=== PATIENT | male | born 1985 | race African-American/Black ===

== ENCOUNTER 2018-08-07 10:52 | Inpatient (IN) | payer BC, OTHER ==
[~2018-08-07] VITALS: Ht 172.7 cm; Wt 66.8 kg
[~2018-08-07 10:52] MED LIST: KETO5DRO2 OP; PRED1DRO OP; [UNRECOGNIZED DRUG - CODE] OP
[2018-08-07] MEDS ORDERED: ONDANSETRON HCL 4 MG/2 ML VIAL IVP ONE ×3 (13:00→16:45)
[2018-08-07] MEDS ORDERED: SODIUM CHLORIDE 0.9% 2,000 ML IV ONE (13:00)
[2018-08-07] MEDS ORDERED: KETOROLAC TROMETHAMINE 30 MG/ML VIAL IVP ONE (13:00)
[2018-08-07 13:13] LABS: BASOPHILS % (AUTO) 0.4 % (0.0-2.0); EOSINOPHILS % (AUTO) 0.1 % (1.0-6.0); HEMATOCRIT 44.6 % (41-53); HEMOGLOBIN 14.6 g/dL (13.5-17.5); LYMPHOCYTES % (AUTO) 5.1 % (22.0-44.0); MEAN CORPUSCULAR HEMOGLOBIN 30.4 pg (26.0-34.0); MEAN CORPUSCULAR HGB CONC 32.7 G/dL (31.0-37.0); MEAN CORPUSCULAR VOLUME 93 fL (80-100); MONOCYTES # (AUTO) 1.1 K/uL (0.1-1.0); MONOCYTES % (AUTO) 6.1 % (2.0-9.0); NEUTROPHILS # (AUTO) 16.7 K/uL (1.8-7.7); PLATELET COUNT (AUTO) 340 K/uL (150-450); RED BLOOD CELL COUNT(AUTO) 4.81 MIL/uL (4.50-5.90); RED CELL DISTRIBUTION WIDTH 13.4 % (11.5-14.5)
[2018-08-07 13:15] LABS: NEUTROPHILS % (AUTO) 88.3 % (40.0-70.0)
[2018-08-07 13:21] LABS: ANION GAP 28 mmol/L (8-16); CARBON DIOXIDE 14 mmol/L (22-29); CHLORIDE 96 mmol/L (98-107); CREATININE 1.27 mg/dL (0.60-1.30); GLOMERULAR FILTR. RATE CALC > 60 mL/min (>60); GLUCOSE,RANDOM 94 mg/dL (70-110); POTASSIUM 4.9 mmol/L (3.5-5.1); SODIUM SERUM 138 mmol/L (136-145); UREA NITROGEN, BLOOD 20 mg/dL (7-18)
[2018-08-07 13:30] LABS: ALANINE AMINOTRANSFERASE 80 U/L (12-78); ALBUMIN 4.9 g/dL (3.4-5.0); ALKALINE PHOSPHATASE 71 U/L (46-116); ASPARTATE AMINOTRANSFERASE 161 U/L (15-37); BILIRUBIN,TOTAL 0.8 mg/dL (0.1-1.0); LIPASE 46 U/L (73-393); TOTAL PROTEIN, SERUM 9.4 g/dL (6.4-8.2)
[2018-08-07 13:34] LABS: CALCIUM, TOTAL 9.8 mg/dL (8.8-10.5)
[2018-08-07 14:30] LABS: APPEARANCE,URINE CLEAR (CLEAR); BILIRUBIN,URINE NEGATIVE (NEGATIVE); GLUCOSE, URINE (UA) NEGATIVE (NEGATIVE); KETONES,URINE >=80 mg/dL (NEGATIVE); LEUKOCYTE ESTERASE ,URINE NEGATIVE (NEGATIVE); NITRATE,URINE NEGATIVE (NEGATIVE); OCCULT BLOOD,URINE SMALL (NEGATIVE); PROTEIN,URINE POS 1+ (NEGATIVE); UROBILINOGEN,URINE 0.2 mg/dL (<=1.0)
[2018-08-07 14:34] LABS: AMPHET/METH SCREEN,URINE NEGATIVE (NEGATIVE); BACTERIA,URINE Rare /HPF (None Seen); BARBITURATE SCREEN, URINE NEGATIVE (NEGATIVE); BENZODIAZEPINES SCREEN,URINE NEGATIVE (NEGATIVE); CANNABINOID SCREEN,URINE POSITIVE (NEGATIVE); COCAINE SCREEN,URINE NEGATIVE (NEGATIVE); METHADONE SCREEN, URINE NEGATIVE (NEGATIVE); OPIATE SCREEN,URINE NEGATIVE (NEGATIVE); PHENCYCLIDINE SCREEN,URINE NEGATIVE (NEGATIVE); RBC,URINE 0-2 /HPF (0-2); SQUAMOUS EPITHELIAL CELL,UR Rare /LPF (None Seen); WBC,URINE None Seen /HPF (0-5)
[2018-08-07] MEDS ORDERED: ACETAMINOPHEN 1000 MG/ISO-OSM 100 ML IV ONE (14:45)
[2018-08-07] MEDS ORDERED: PB/HYOSCY/ATR/SCOP/LIDO/MAALOX 55 ML BOTTLE PO ONE (14:45)
[2018-08-07] MEDS ORDERED: PANTOPRAZOLE SODIUM 40 MG/VIAL IVP ONE (14:45)
[2018-08-07 15:44] LABS: LACTIC ACID 3.5 mmol/L (0.4-2.0)
[2018-08-07 15:47] LABS: INFLUENZA TYPE A NEGATIVE FOR TYPE A (NEGATIVE); INFLUENZA TYPE B POSITIVE FOR TYPE B (NEGATIVE)
[2018-08-07] MEDS: LORazepam 2 MG/ML VIAL IVP ONE ×2 (16:00→16:21)
[2018-08-07] MEDS ORDERED: SODIUM CHLORIDE 0.9% 1,000 ML IV ONE (16:45)
[2018-08-07] MEDS ORDERED: MORPHINE SULFATE 4 MG/ML SYRINGE IVP ONE ×2 (16:45→17:45)
[2018-08-07] MEDS ORDERED: CefTRIAXone 1 GM/DEXTROSE 50 ML IV ONE (16:45)
[2018-08-07] MEDS ORDERED: VANCOMYCIN HCL 1 GM/D5% WATER 200 ML IV ONE (16:45)
[2018-08-07] MEDS ORDERED: OSELTAMIVIR PHOSPHATE 75 MG CAPSULE PO ONE (16:45)
[2018-08-07] MEDS ORDERED: ACETAMINOPHEN 325 MG TABLET PO PRN (18:15)
[2018-08-07] MEDS ORDERED: ONDANSETRON HCL 4 MG/2 ML VIAL IVP PRN (18:15)
[2018-08-07] MEDS ORDERED: 0.9% SODIUM CHLORIDE 10 ML SYRINGE IVP PRN ×2 (18:15→22:30)
[2018-08-07 18:31] LABS: BASOPHILS % (AUTO) 0.2 % (0.0-2.0); EOSINOPHILS % (AUTO) 0 % (1.0-6.0); HEMATOCRIT 37.8 % (41-53); HEMOGLOBIN 12.6 g/dL (13.5-17.5); LYMPHOCYTES # (AUTO) 0.9 K/uL (1.0-4.8); LYMPHOCYTES % (AUTO) 6.4 % (22.0-44.0); MEAN CORPUSCULAR HEMOGLOBIN 30.8 pg (26.0-34.0); MEAN CORPUSCULAR HGB CONC 33.4 G/dL (31.0-37.0); MEAN CORPUSCULAR VOLUME 92 fL (80-100); MONOCYTES # (AUTO) 1.1 K/uL (0.1-1.0); MONOCYTES % (AUTO) 8.1 % (2.0-9.0); PLATELET COUNT (AUTO) 209 K/uL (150-450); RED CELL DISTRIBUTION WIDTH 13.1 % (11.5-14.5)
[2018-08-07 18:32] LABS: NEUTROPHILS % (AUTO) 85.3 % (40.0-70.0)
[2018-08-07 18:39] LABS: ANION GAP 15 mmol/L (8-16); CALCIUM, TOTAL 7.8 mg/dL (8.8-10.5); CARBON DIOXIDE 19 mmol/L (22-29); CHLORIDE 99 mmol/L (98-107); CREATININE 1.03 mg/dL (0.60-1.30); GLOMERULAR FILTR. RATE CALC > 60 mL/min (>60); GLUCOSE,RANDOM 110 mg/dL (70-110); POTASSIUM 4.6 mmol/L (3.5-5.1); SODIUM SERUM 133 mmol/L (136-145); UREA NITROGEN, BLOOD 15 mg/dL (7-18)
[2018-08-07 19:40] VITALS: BP 139/84
[2018-08-07] MEDS ORDERED: ZOLPIDEM TARTRATE 5 MG TABLET PO PRN (22:30)
[2018-08-08 00:05] VITALS: BP 135/79
[2018-08-08 04:20] VITALS: BP 119/75
[2018-08-08] MEDS: ACETAMINOPHEN 325 MG TABLET PO PRN ×3 (04:35→13:26)
[2018-08-08 06:03] LABS: BASOPHILS % (AUTO) 0.4 % (0.0-2.0); EOSINOPHILS % (AUTO) 0 % (1.0-6.0); HEMATOCRIT 34.3 % (41-53); HEMOGLOBIN 11.7 g/dL (13.5-17.5); LYMPHOCYTES # (AUTO) 1.1 K/uL (1.0-4.8); LYMPHOCYTES % (AUTO) 10.5 % (22.0-44.0); MEAN CORPUSCULAR HEMOGLOBIN 30.7 pg (26.0-34.0); MEAN CORPUSCULAR VOLUME 90 fL (80-100); MONOCYTES # (AUTO) 0.8 K/uL (0.1-1.0); MONOCYTES % (AUTO) 7.8 % (2.0-9.0); NEUTROPHILS # (AUTO) 8.3 K/uL (1.8-7.7); NEUTROPHILS % (AUTO) 81.3 % (40.0-70.0); PLATELET COUNT (AUTO) 225 K/uL (150-450); RED CELL DISTRIBUTION WIDTH 12.8 % (11.5-14.5)
[2018-08-08 06:27] LABS: ANION GAP 10 mmol/L (8-16); CALCIUM, TOTAL 8.1 mg/dL (8.8-10.5); CARBON DIOXIDE 24 mmol/L (22-29); CHLORIDE 103 mmol/L (98-107); CREATININE 1.01 mg/dL (0.60-1.30); GLOMERULAR FILTR. RATE CALC > 60 mL/min (>60); GLUCOSE,RANDOM 90 mg/dL (70-110); POTASSIUM 3.6 mmol/L (3.5-5.1); SODIUM SERUM 137 mmol/L (136-145); UREA NITROGEN, BLOOD 13 mg/dL (7-18)
[2018-08-08 07:36] VITALS: BP 119/74
[2018-08-08] MEDS: HEPARIN SODIUM,PORCINE 5,000 UNITS/ML VIAL SQ SCH ×3 (08:36→17:31)
[2018-08-08] MEDS ORDERED: PANTOPRAZOLE SODIUM 40 MG/VIAL IVP SCH (09:00)
[2018-08-08] MEDS: MORPHINE SULFATE 2 MG/ML SYRINGE IVP PRN ×3 (09:24→17:37)
[2018-08-08] MEDS: ONDANSETRON HCL 4 MG/2 ML VIAL IVP PRN ×2 (09:39→17:37)
[2018-08-08] MEDS ORDERED: PB/HYOSCY/ATR/SCOP/LIDO/MAALOX 55 ML BOTTLE PO ONE (11:00)
[2018-08-08 11:56] VITALS: BP 131/87
[2018-08-08] MEDS ORDERED: SODIUM CHLORIDE 0.9% 100 ML ONE (15:00)
[2018-08-08] MEDS ORDERED: IOVERSOL 320 MG/ML 100 ML VIAL ONE (15:00)
[2018-08-08 16:02] VITALS: BP 134/86
[2018-08-08 17:01] LABS: ALANINE AMINOTRANSFERASE 43 U/L (12-78); ALBUMIN 3.2 g/dL (3.4-5.0); ALKALINE PHOSPHATASE 47 U/L (46-116); ASPARTATE AMINOTRANSFERASE 68 U/L (15-37); BILIRUBIN,TOTAL 0.7 mg/dL (0.1-1.0); TOTAL PROTEIN, SERUM 6.7 g/dL (6.4-8.2)
[2018-08-08] MEDS: PANTOPRAZOLE SODIUM 80 MG in SODIUM CHLORIDE 0.9% 100 ML IV SCH (17:31)
[2018-08-08] MEDS: OSELTAMIVIR PHOSPHATE 75 MG CAPSULE PO SCH (17:31)
[2018-08-08] MEDS ORDERED: SODIUM CHLORIDE 0.9% 500 ML IV ONE (17:36)
[2018-08-08] MEDS: CefTRIAXone SODIUM 2 GM in DEXTROSE 5%-WATER 50 ML IV SCH (17:37)
[2018-08-08] MEDS: MetroNIDAZOLE 500 MG/NACL 100 ML IV SCH (18:59)
[2018-08-08 19:47] VITALS: BP 148/94
[2018-08-08 20:13] LABS: INR 0.9 (0.9-1.1); PROTHROMBIN TIME 9.6 SEC (9.4-11.6)
[2018-08-08 20:26] LABS: BASOPHILS % (AUTO) 0.7 % (0.0-2.0); EOSINOPHILS % (AUTO) 0 % (1.0-6.0); HEMATOCRIT 35.9 % (41-53); LYMPHOCYTES # (AUTO) 1.6 K/uL (1.0-4.8); LYMPHOCYTES % (AUTO) 20.8 % (22.0-44.0); MEAN CORPUSCULAR HEMOGLOBIN 30.8 pg (26.0-34.0); MEAN CORPUSCULAR HGB CONC 33.5 G/dL (31.0-37.0); MEAN CORPUSCULAR VOLUME 92 fL (80-100); MONOCYTES # (AUTO) 0.6 K/uL (0.1-1.0); MONOCYTES % (AUTO) 7.8 % (2.0-9.0); NEUTROPHILS # (AUTO) 5.3 K/uL (1.8-7.7); NEUTROPHILS % (AUTO) 70.7 % (40.0-70.0); PLATELET COUNT (AUTO) 220 K/uL (150-450); RED CELL DISTRIBUTION WIDTH 12.7 % (11.5-14.5)
[2018-08-09] MEDS: OSELTAMIVIR PHOSPHATE 75 MG CAPSULE PO SCH ×3 (00:25→20:06)
[2018-08-09 00:27] VITALS: BP 137/96
[2018-08-09] MEDS: MORPHINE SULFATE 2 MG/ML SYRINGE IVP PRN ×4 (00:29→20:39)
[2018-08-09] MEDS: MetroNIDAZOLE 500 MG/NACL 100 ML IV SCH ×2 (02:06→10:16)
[2018-08-09] MEDS: PANTOPRAZOLE SODIUM 80 MG in SODIUM CHLORIDE 0.9% 100 ML IV SCH (02:06)
[2018-08-09 04:25] VITALS: BP 141/84
[2018-08-09] MEDS: CefTRIAXone SODIUM 2 GM in DEXTROSE 5%-WATER 50 ML IV SCH ×2 (05:44→16:04)
[2018-08-09 07:22] LABS: BASOPHILS % (AUTO) 1.4 % (0.0-2.0); EOSINOPHILS % (AUTO) 0.2 % (1.0-6.0); HEMATOCRIT 36.2 % (41-53); HEMOGLOBIN 12.2 g/dL (13.5-17.5); LYMPHOCYTES # (AUTO) 1.3 K/uL (1.0-4.8); LYMPHOCYTES % (AUTO) 24.5 % (22.0-44.0); MEAN CORPUSCULAR HEMOGLOBIN 30.8 pg (26.0-34.0); MEAN CORPUSCULAR HGB CONC 33.6 G/dL (31.0-37.0); MEAN CORPUSCULAR VOLUME 92 fL (80-100); MONOCYTES # (AUTO) 0.6 K/uL (0.1-1.0); MONOCYTES % (AUTO) 10.8 % (2.0-9.0); NEUTROPHILS # (AUTO) 3.3 K/uL (1.8-7.7); NEUTROPHILS % (AUTO) 63.1 % (40.0-70.0); PLATELET COUNT (AUTO) 214 K/uL (150-450); RED BLOOD CELL COUNT(AUTO) 3.95 MIL/uL (4.50-5.90); RED CELL DISTRIBUTION WIDTH 12.5 % (11.5-14.5)
[2018-08-09] MEDS ORDERED: SODIUM CHLORIDE 0.9% 1,000 ML IV ONE ×2 (07:24→07:30)
[2018-08-09 07:44] LABS: ALANINE AMINOTRANSFERASE 31 U/L (12-78); ALBUMIN 3.1 g/dL (3.4-5.0); ALKALINE PHOSPHATASE 46 U/L (46-116); ANION GAP 10 mmol/L (8-16); ASPARTATE AMINOTRANSFERASE 37 U/L (15-37); BILIRUBIN,TOTAL 0.4 mg/dL (0.1-1.0); CALCIUM, TOTAL 8.3 mg/dL (8.8-10.5); CARBON DIOXIDE 25 mmol/L (22-29); CHLORIDE 100 mmol/L (98-107); CREATININE 0.87 mg/dL (0.60-1.30); GLOMERULAR FILTR. RATE CALC > 60 mL/min (>60); GLUCOSE,RANDOM 89 mg/dL (70-110); SODIUM SERUM 135 mmol/L (136-145); TOTAL PROTEIN, SERUM 6.7 g/dL (6.4-8.2); UREA NITROGEN, BLOOD 8 mg/dL (7-18)
[2018-08-09 08:12] LABS: POTASSIUM 2.7 mmol/L (3.5-5.1)
[2018-08-09] MEDS ORDERED: POTASSIUM CHL 10 MEQ/WATER 50 ML IV PRN (10:15)
[2018-08-09] MEDS: ACETAMINOPHEN 325 MG TABLET PO PRN (10:15)
[2018-08-09] MEDS ORDERED: D5 NS IV ONE (10:15)
[2018-08-09] MEDS ORDERED: POTASSIUM CHL IV ONE (10:15)
[2018-08-09] MEDS: PANTOPRAZOLE SODIUM 40 MG/VIAL IVP SCH ×2 (10:16→20:06)
[2018-08-09] MEDS: HEPARIN SODIUM,PORCINE 5,000 UNITS/ML VIAL SQ SCH ×4 (10:16→23:23)
[2018-08-09] MEDS: ONDANSETRON HCL 4 MG/2 ML VIAL IVP PRN (10:16)
[2018-08-09 11:04] VITALS: BP 148/72
[2018-08-09 17:21] VITALS: BP 145/93
[2018-08-09] MEDS: POTASSIUM CHLORIDE 20 MEQ ER TABLET PO PRN (20:06)
[2018-08-09 20:09] VITALS: BP 142/93
[2018-08-09 23:23] VITALS: BP 140/84
[2018-08-10] MEDS: MORPHINE SULFATE 2 MG/ML SYRINGE IVP PRN ×5 (03:19→21:48)
[2018-08-10 04:00] VITALS: BP 143/95
[2018-08-10] MEDS ORDERED: LIDOCAINE/PF 2% 5 ML VIAL IM ONE (05:44)
[2018-08-10] MEDS ORDERED: PROPOFOL 1% 20 ML VIAL IVP ONE (05:44)
[2018-08-10] MEDS: CefTRIAXone SODIUM 2 GM in DEXTROSE 5%-WATER 50 ML IV SCH ×2 (06:15→16:08)
[2018-08-10 06:35] LABS: BASOPHILS % (AUTO) 1.1 % (0.0-2.0); EOSINOPHILS % (AUTO) 0.3 % (1.0-6.0); HEMATOCRIT 37.9 % (41-53); HEMOGLOBIN 12.7 g/dL (13.5-17.5); LYMPHOCYTES # (AUTO) 1.3 K/uL (1.0-4.8); LYMPHOCYTES % (AUTO) 21.7 % (22.0-44.0); MEAN CORPUSCULAR HEMOGLOBIN 30.2 pg (26.0-34.0); MEAN CORPUSCULAR HGB CONC 33.6 G/dL (31.0-37.0); MEAN CORPUSCULAR VOLUME 90 fL (80-100); MONOCYTES # (AUTO) 0.7 K/uL (0.1-1.0); MONOCYTES % (AUTO) 11.9 % (2.0-9.0); PLATELET COUNT (AUTO) 222 K/uL (150-450); RED BLOOD CELL COUNT(AUTO) 4.21 MIL/uL (4.50-5.90); RED CELL DISTRIBUTION WIDTH 12.5 % (11.5-14.5)
[2018-08-10 06:44] LABS: ALANINE AMINOTRANSFERASE 29 U/L (12-78); ALBUMIN 3.5 g/dL (3.4-5.0); ALKALINE PHOSPHATASE 51 U/L (46-116); ANION GAP 13 mmol/L (8-16); ASPARTATE AMINOTRANSFERASE 28 U/L (15-37); BILIRUBIN,TOTAL 0.6 mg/dL (0.1-1.0); CALCIUM, TOTAL 8.7 mg/dL (8.8-10.5); CARBON DIOXIDE 25 mmol/L (22-29); CHLORIDE 102 mmol/L (98-107); GLOMERULAR FILTR. RATE CALC > 60 mL/min (>60); GLUCOSE,RANDOM 86 mg/dL (70-110); POTASSIUM 3.3 mmol/L (3.5-5.1); SODIUM SERUM 140 mmol/L (136-145); TOTAL PROTEIN, SERUM 7.1 g/dL (6.4-8.2); UREA NITROGEN, BLOOD 5 mg/dL (7-18)
[2018-08-10] MEDS: HEPARIN SODIUM,PORCINE 5,000 UNITS/ML VIAL SQ SCH ×2 (08:10→16:08)
[2018-08-10] MEDS: PANTOPRAZOLE SODIUM 40 MG/VIAL IVP SCH ×2 (08:11→20:35)
[2018-08-10] MEDS: OSELTAMIVIR PHOSPHATE 75 MG CAPSULE PO SCH ×2 (08:11→20:36)
[2018-08-10] MEDS: POTASSIUM CHLORIDE 20 MEQ ER TABLET PO PRN (08:11)
[2018-08-10 08:35] VITALS: BP 149/87
[2018-08-10 11:49] VITALS: BP 136/86
[2018-08-10 12:22] LABS: HSV 1 TYPE SPECIFIC IGG <0.91 index (0.00-0.90)
[2018-08-10] MEDS: MAALOX/LIDOCAINE/NYSTATIN SUSP 5 ML ORAL.SYG PO SCH ×3 (12:43→20:29)
[2018-08-10] MEDS ORDERED: PANT40TA25 PO (14:17)
[2018-08-10] MEDS ORDERED: OSEL75 PO (14:18)
[2018-08-10] MEDS: SUCRALFATE 1 GM/10 ML SUSPENSION UDCUP PO SCH ×2 (16:07→20:36)
[2018-08-10 17:20] VITALS: BP 144/85
[2018-08-10] MEDS: DEXTROSE 5% IV SCH (18:15)
[2018-08-10] MEDS: ACYCLOVIR IV SCH (18:15)
[2018-08-10] MEDS: WATER IV SCH (18:15)
[2018-08-10 20:06] VITALS: BP 144/90
[2018-08-10 23:48] VITALS: BP 158/93
[2018-08-11] MEDS: HEPARIN SODIUM,PORCINE 5,000 UNITS/ML VIAL SQ SCH ×2 (00:13→08:00)
[2018-08-11] MEDS: MAALOX/LIDOCAINE/NYSTATIN SUSP 5 ML ORAL.SYG PO SCH ×2 (00:18→04:20)
[2018-08-11] MEDS: WATER IV SCH (02:28)
[2018-08-11] MEDS: DEXTROSE 5% IV SCH (02:28)
[2018-08-11] MEDS: ACYCLOVIR IV SCH (02:28)
[2018-08-11] MEDS: MORPHINE SULFATE 2 MG/ML SYRINGE IVP PRN ×2 (02:35→08:24)
[2018-08-11 04:56] VITALS: BP 130/85
[2018-08-11 06:44] LABS: BASOPHILS % (AUTO) 1.6 % (0.0-2.0); EOSINOPHILS % (AUTO) 0.9 % (1.0-6.0); HEMATOCRIT 38.2 % (41-53); HEMOGLOBIN 12.8 g/dL (13.5-17.5); LYMPHOCYTES # (AUTO) 1.5 K/uL (1.0-4.8); LYMPHOCYTES % (AUTO) 29.5 % (22.0-44.0); MEAN CORPUSCULAR HEMOGLOBIN 30.6 pg (26.0-34.0); MEAN CORPUSCULAR HGB CONC 33.5 G/dL (31.0-37.0); MEAN CORPUSCULAR VOLUME 92 fL (80-100); MONOCYTES # (AUTO) 0.6 K/uL (0.1-1.0); MONOCYTES % (AUTO) 11.4 % (2.0-9.0); NEUTROPHILS # (AUTO) 2.8 K/uL (1.8-7.7); NEUTROPHILS % (AUTO) 56.6 % (40.0-70.0); PLATELET COUNT (AUTO) 254 K/uL (150-450); RED BLOOD CELL COUNT(AUTO) 4.18 MIL/uL (4.50-5.90); RED CELL DISTRIBUTION WIDTH 12.4 % (11.5-14.5)
[2018-08-11 07:03] LABS: ALANINE AMINOTRANSFERASE 25 U/L (12-78); ALBUMIN 3.3 g/dL (3.4-5.0); ALKALINE PHOSPHATASE 49 U/L (46-116); ANION GAP 12 mmol/L (8-16); ASPARTATE AMINOTRANSFERASE 26 U/L (15-37); BILIRUBIN,TOTAL 0.4 mg/dL (0.1-1.0); CALCIUM, TOTAL 8.7 mg/dL (8.8-10.5); CARBON DIOXIDE 25 mmol/L (22-29); CHLORIDE 101 mmol/L (98-107); CREATININE 0.79 mg/dL (0.60-1.30); GLOMERULAR FILTR. RATE CALC > 60 mL/min (>60); GLUCOSE,RANDOM 95 mg/dL (70-110); POTASSIUM 3.1 mmol/L (3.5-5.1); SODIUM SERUM 138 mmol/L (136-145); UREA NITROGEN, BLOOD 9 mg/dL (7-18)
[2018-08-11 08:00] VITALS: BP 144/93
[2018-08-11] MEDS: PANTOPRAZOLE SODIUM 40 MG/VIAL IVP SCH (08:25)
[2018-08-11] MEDS: OSELTAMIVIR PHOSPHATE 75 MG CAPSULE PO SCH (10:59)
[2018-08-11] MEDS: POTASSIUM CHLORIDE 20 MEQ ER TABLET PO PRN (10:59)
[2018-08-11] MEDS: SUCRALFATE 1 GM/10 ML SUSPENSION UDCUP PO SCH (11:00)
== END 2018-08-11 11:25 | disposition left against medical advice (07) | DRG 872 ==
LOC: EMS 10:53 → 5N 18:19 → 4E 08-09 15:40 → 6N 08-10 19:00
PROVIDERS: ADMIT Internal Medicine; ATTEND Internal Medicine
PROC: 0DB58ZX Excision of Esophagus, Via Natural or Artificial Opening Endoscopic, Diagnostic (ICD-10-PCS; principal; 2018-08-09 08:00)
DX: A41.89 Other specified sepsis (principal); K22.10 Ulcer of esophagus without bleeding; K92.0 Hematemesis; J10.1 Influenza due to other identified influenza virus with other respiratory manifestations; E86.0 Dehydration; F10.10 Alcohol abuse, uncomplicated; E87.6 Hypokalemia; D64.9 Anemia, unspecified; Z53.21 Procedure and treatment not carried out due to patient leaving prior to being seen by health care provider; F12.90 Cannabis use, unspecified, uncomplicated; F17.210 Nicotine dependence, cigarettes, uncomplicated; K44.9 Diaphragmatic hernia without obstruction or gangrene; Z82.49 Family history of ischemic heart disease and other diseases of the circulatory system; Z91.19 Patient's noncompliance with other medical treatment and regimen
CPT/HCPCS: 70450; 71260; 74220; 83605; 83735; 84132; 84145; 86140; 86644; 86645; 86694; 86695; 86696; 87040; 87804; 88305; 88312; 88341; 88342; 96374; 96375; 99291; C9113; G0378; G0480; J0131; J0133; J0696; J1644; J1885; J2060; J2270; J2405; J2704; J3370; J3480; J3490; J7030; J7040; J7050; J7060